=== PATIENT | female | born 1940 | race Caucasian/White ===

== ENCOUNTER 2019-07-07 05:42 | Day surgery (SDC) | payer MEDICARE ==
[~2019-07-07] VITALS: Ht 157.5 cm; Wt 54.8 kg
[2019-07-07 06:47] VITALS: BP 148/91
== END 2019-07-07 13:40 | disposition home or self-care (01) ==
LOC: OUT 05:42
PROVIDERS: ATTEND Orthopaedic Surgery Orthopaedic Surgery of the Spine
DX: M80.08XA Age-related osteoporosis with current pathological fracture, vertebra(e), initial encounter for fracture (principal); M54.9 Dorsalgia, unspecified; M06.9 Rheumatoid arthritis, unspecified; Z79.899 Other long term (current) drug therapy; Z85.118 Personal history of other malignant neoplasm of bronchus and lung
CPT/HCPCS: 22513; 72072; 88304; 88311; 88342; 93005; C1713; J0171; J0330; J0690; J2370; J2704; J2930; J3010; J7120